=== PATIENT | male | born 1985 | race Hispanic/Latino ===

== ENCOUNTER 2023-10-13 10:32 | Inpatient (IN) | payer OTHER ==
[2023-10-13] MEDS ORDERED: Metoclopramide HCl 10 MG (2 mL) VIAL ONE (10:59)
[2023-10-13] MEDS ORDERED: Acetaminophen 325 MG TAB ONE (10:59)
[2023-10-13 11:09] LABS: #Basophils 0.03 10x3/uL (0.0-0.2); %Basophils 0.4 % (0.0-1.0); %Lymphocytes 24.8 % (21.0-51.0); %Neutrophils 66.7 % (42.0-75.0); Hematocrit 40.8 % (42.0-52.0); Hemoglobin 13.9 g/dL (14.0-18.0); Mean Corpuscular HGB CONC 34.1 g/dL (32.0-36.0); Mean Corpuscular Hemoglobin 29.1 pg (27.0-31.0); Mean Corpuscular Volume 85.5 fL (78.0-98.0); Mean Platelet Volume 9.9 fL (7.4-10.4); Platelet Count 265 10x3/uL (130-400); RBC Distribution Width 12.4 % (11.5-14.5); Red Blood Cell (RBC) Count 4.77 mill/uL (4.70-6.10)
[2023-10-13 11:25] LABS: ALT (SGPT) 28 U/L (8-55); AST (SGOT) 17 U/L (5-34); Albumin 4.2 g/dL (3.5-5.0); Alkaline Phosphatase 71 U/L (40-110); Anion Gap 12 mmol/L (10-20); BUN (Urea Nitrogen) 8 mg/dL (8.9-20.6); Bilirubin, Total 0.6 mg/dL (0.2-1.2); Calc. Creatinine Clearance 0 mL/min (70-130); Calcium 9.5 mg/dL (7.8-10.44); Carbon Dioxide 23 mmol/L (22-29); Chloride 110 mmol/L (98-107); Estimated GFR 118; Glucose 95 mg/dL (70-105); Potassium 4.2 mmol/L (3.5-5.1); Protein, Total 7.2 g/dL (6.0-8.3); Sodium 141 mmol/L (136-145)
[2023-10-13 13:58] LABS: Troponin I Less than 0.010 ng/mL (< 0.028)
[2023-10-13] MEDS ORDERED: Acetaminophen 650 MG Suppository PR PRN (15:48)
[2023-10-13 16:08] LABS: Troponin I Less than 0.010 ng/mL (< 0.028)
[2023-10-13 16:36] VITALS: BMI 33.7
[2023-10-13] MEDS: Pantoprazole 40 MG VIAL IVP SCH (16:51)
[2023-10-13] MEDS: Atropine Sulfate 1 mg/10 ml Syringe IVP SCH (18:35)
[2023-10-13 18:48] LABS: Hemoglobin A1c 5.3 % (4.0-6.0)
[2023-10-13 18:58] LABS: Troponin I Less than 0.010 ng/mL (< 0.028)
[2023-10-13] MEDS: Atorvastatin Calcium 40 MG TAB PO SCH (20:59)
[2023-10-13] MEDS ORDERED: Famotidine 20 MG TAB PO SCH (21:00)
[2023-10-13 21:40] LABS: Amphetamine Not Detected (NotDetected); Barbiturates Screen Not Detected (NotDetected); Benzodiazepine Screen Not Detected (NotDetected); Cocaine Metabolite Screen Not Detected (NotDetected); Methadone Not Detected (NotDetected); Methamphetamine Not Detected (NotDetected); Opiate Screen Not Detected (NotDetected); Oxycodone Screen Not Detected (NotDetected); Phencyclidine (PCP) Not Detected (NotDetected); THC/Cannabinoid Screen Not Detected (NotDetected); Tricyclic Screen Not Detected (NotDetected)
[2023-10-14 05:07] LABS: #Basophils 0.04 10x3/uL (0.0-0.2); %Basophils 0.4 % (0.0-1.0); %Eosinophils 1.9 % (0.0-10.0); %Lymphocytes 20.5 % (21.0-51.0); %Monocytes 7.5 % (0.0-10.0); %Neutrophils 69.3 % (42.0-75.0); Hematocrit 43.7 % (42.0-52.0); Hemoglobin 14.6 g/dL (14.0-18.0); Mean Corpuscular HGB CONC 33.4 g/dL (32.0-36.0); Mean Corpuscular Volume 86.7 fL (78.0-98.0); Platelet Count 303 10x3/uL (130-400); RBC Distribution Width 12.7 % (11.5-14.5); Red Blood Cell (RBC) Count 5.04 mill/uL (4.70-6.10)
[2023-10-14 05:13] LABS: INR-International Normal Ratio 1.1; Prothrombin Time 14.2 sec (12.0-14.7)
[2023-10-14 05:20] LABS: Anion Gap 14 mmol/L (10-20); BUN (Urea Nitrogen) 8 mg/dL (8.9-20.6); Calc. Creatinine Clearance 186 mL/min (70-130); Calcium 9.9 mg/dL (7.8-10.44); Carbon Dioxide 24 mmol/L (22-29); Cardiac Risk 4.8 (Less than 4.5); Chloride 108 mmol/L (98-107); Cholesterol 164 mg/dl (< 200 Desired); Estimated GFR 117; Glucose 108 mg/dL (70-105); HDL Cholesterol 34 mg/dL (>60 Neg Risk); LDL Cholesterol, Calculated 104 mg/dL; Sodium 142 mmol/L (136-145); Triglycerides 129 mg/dL (Less than 150)
[2023-10-14] MEDS: Aspirin 81 mg Enteric Coated Tablet PO SCH (09:50)
[2023-10-14] MEDS: Pantoprazole DR 40 MG TAB PO SCH (09:50)
[2023-10-14] MEDS: Enoxaparin 40 MG (0.4 mL) SYRINGE SC SCH (09:50)
[2023-10-14 11:50] VITALS: BMI 33.7
[2023-10-14] MEDS: Ibuprofen 200 MG TAB PO SCH (18:02)
[2023-10-14] MEDS: Acetaminophen 325 MG TAB PO PRN (21:10)
[2023-10-15 04:25] LABS: #Basophils 0.03 10x3/uL (0.0-0.2); %Basophils 0.4 % (0.0-1.0); %Eosinophils 3.6 % (0.0-10.0); %Lymphocytes 35.9 % (21.0-51.0); %Monocytes 9.3 % (0.0-10.0); %Neutrophils 50.7 % (42.0-75.0); Hematocrit 42.2 % (42.0-52.0); Mean Corpuscular HGB CONC 33.2 g/dL (32.0-36.0); Mean Corpuscular Hemoglobin 28.3 pg (27.0-31.0); Mean Corpuscular Volume 85.3 fL (78.0-98.0); Mean Platelet Volume 10.1 fL (7.4-10.4); Platelet Count 291 10x3/uL (130-400); RBC Distribution Width 12.5 % (11.5-14.5); Red Blood Cell (RBC) Count 4.95 mill/uL (4.70-6.10)
[2023-10-15 04:37] LABS: Anion Gap 15 mmol/L (10-20); BUN (Urea Nitrogen) 10 mg/dL (8.9-20.6); Calc. Creatinine Clearance 188 mL/min (70-130); Calcium 9.8 mg/dL (7.8-10.44); Carbon Dioxide 22 mmol/L (22-29); Chloride 105 mmol/L (98-107); Estimated GFR 118; Glucose 98 mg/dL (70-105); Potassium 3.4 mmol/L (3.5-5.1); Sodium 139 mmol/L (136-145)
[2023-10-15] MEDS: Ibuprofen 800 MG TAB PO SCH (08:15)
[2023-10-15] MEDS: Ketorolac Tromethamine 30 MG (1 mL) VIAL IVP SCH (10:57)
[2023-10-15] MEDS: Sodium Chloride 0.9% 500 ML IV SCH (10:58)
[2023-10-15] MEDS: Metoclopramide HCl 10 MG (2 mL) VIAL IVP SCH (10:58)
[2023-10-15 12:02] VITALS: TEMP 97.8
[2023-10-15 12:28] VITALS: BP 132/77
== END 2023-10-15 12:58 | DRG 74 ==
LOC: EEVIPCON 10:32 → SUATTDRO 10:32 → ERS 10:32 → 2SW 15:25 → OBSVTOIN 10-15 08:43
PROVIDERS: ADMIT Family Medicine; ATTEND Family Medicine
DX: G51.0 Bell's palsy (principal); M94.0 Chondrocostal junction syndrome [Tietze]; H53.2 Diplopia; G43.909 Migraine, unspecified, not intractable, without status migrainosus; Z79.1 Long term (current) use of non-steroidal anti-inflammatories (NSAID); R00.1 Bradycardia, unspecified
CPT/HCPCS: 36415; 70450; 70553; 71045; 80048; 80053; 80061; 80306; 83036; 83090; 84484; 85025; 85379; 85610; 86038; 86141; 86225; 93005; 93010; 93306; 93880; 96365; C9113; J0461; J1650; J1885; J2765; J7030